=== PATIENT | male | born 1965 | race African-American/Black ===

== ENCOUNTER 2017-03-13 12:19 | Emergency (ER) | payer MEDICAID ==
[~2017-03-13] VITALS: Ht 180.3 cm; Wt 130.2 kg
[~2017-03-13 12:19] MED LIST: ORE25 PO
[2017-03-13 13:47] VITALS: BP 148/107
--- NOTE | 2017-03-13 14:25 | NUR ---
Patient ambulated to bed 05.
--- NOTE | 2017-03-13 14:38 | NUR ---
PATIENT PRESENTS TO ED WITH C/O LEFT HAND PAIN X 2MONTHS, 8/10 SHARP, CONSTANT, THROBBING, TOOK 800MG X 3 LAST NIGHT, "BUG BITE" ON ABDOMEN;HX; HTN, RT ACL REPAIR 1996, [facility] REPAR 1993;RX HYDROCHLOROTHIAZIDE 25MG QD .DENIES N/V/D; SKIN IS PINK/WARM/DRY; AAOX4 WITH EVEN AND STEADY GAIT; LUNGS CLEAR BL; HR EVEN AND REGULAR; PT DENIES ANY FEVER, CP, SOB, OR COUGH AT THIS TIME; PATIENT STATES PAIN OF 10/10 AT THIS TIME;PATIENT POSITIONED FOR COMFORT; HOB ELEVATED; BEDRAILS UP X2; BED DOWN.CAN HANDLER AT BEDSIDE.
--- NOTE | 2017-03-13 14:57 | NUR ---
Patient discharged with v/s stable. Written and verbal after care instructions given and explained. Patient alert, oriented and verbalized understanding of instructions. Ambulatory with steady gait. All questions addressed prior to discharge. ID band removed. Patient advised to follow up with PMD. Rx of BACITRACIN AND CORTIZONE given. Patient educated on indication of medication including possible reaction and side effects. Opportunity to ask questions provided and answered.
[2017-03-13 14:59] VITALS: BP 143/99
== END 2017-03-13 14:57 | disposition home or self-care (01) ==
LOC: MED 12:19
DX: M77.9 Enthesopathy, unspecified (principal); R21 Rash and other nonspecific skin eruption; I10 Essential (primary) hypertension; F17.200 Nicotine dependence, unspecified, uncomplicated
CPT/HCPCS: 99283